=== PATIENT | male | born 1970 | race Caucasian/White ===

== ENCOUNTER 2023-02-03 03:25 | Observation (INO) | payer MEDICAID, OTHER ==
[~2023-02-03] VITALS: Ht 188 cm; Wt 79.8 kg
[2023-02-03] MEDS ORDERED: ONDANSETRON 4MG 2ML VIAL IV ONE (04:15)
[2023-02-03] MEDS ORDERED: NS 1,000 ML IV ONE (04:15)
[2023-02-03] MEDS: HYDROMORPHONE HCL 0.5 MG/ 0.5 ML SYRINGE IV PRN ×4 (04:28→21:02)
[2023-02-03] MEDS ORDERED: ISOVUE-370 76% 100ML VIAL As Ordered ONE (04:41)
[2023-02-03 04:56] LABS: BASO % 0.4 % (0.0-1.0); EOS # 0.1 10^3/uL (0.0-0.5); EOS % 0.7 % (0.0-3.0); HEMATOCRIT 38.9 % (42.0-52.0); LYMPH # 0.7 10^3/uL (1.5-5.0); LYMPH % 9.4 % (24.0-44.0); MEAN CORPUSCULAR HEMOGLOBIN 30.5 pg (27.0-33.0); MEAN CORPUSCULAR HGB CONC 33.4 g/dl (32.0-36.5); MEAN CORPUSCULAR VOLUME 91.3 fl (80.0-96.0); MONO # 0.3 10^3/uL (0.0-0.8); MONO % 3.4 % (2.0-8.0); NEUTROPHILS # 6.3 10^3/uL (1.5-8.5); PLATELET COUNT, AUTOMATED 299 10^3/uL (150-450); RED BLOOD COUNT 4.26 10^6/uL (4.30-6.10); WHITE BLOOD COUNT 7.4 10^3/uL (4.0-10.0)
[2023-02-03 05:17] LABS: LIPASE 22 U/L (12-53)
[2023-02-03 05:18] LABS: CPK CREATINE PHOSPHOKINASE 123 U/L (46-171); MB/CK RELATIVE INDEX 0.81 (< OR =4)
[2023-02-03 05:19] LABS: ALBUMIN 3.3 G/DL (3.2-5.2); ALKALINE PHOSPHATASE 97 U/L (46-116); ALT/SGPT 35 U/L (7.0-40); AST/SGOT 17 U/L (<34); BILIRUBIN,DIRECT 0.2 MG/DL (<0.4); BILIRUBIN,TOTAL 0.5 MG/DL (0.3-1.2); TOTAL PROTEIN 6.2 G/DL (5.7-8.2)
[2023-02-03 05:35] LABS: RSV AMPLIFICATION NEGATIVE (NEGATIVE)
[2023-02-03] MEDS ORDERED: HOME MED LIST COMPLETE! XX SCH (06:40)
[2023-02-03] MEDS ORDERED: MOM 30ML SUSPENSION UDC PO PRN (07:55)
[2023-02-03] MEDS: CIPROFLOXACIN 400 MG in IV 1 EA IV SCH ×2 (08:15→21:01)
[2023-02-03 09:25] VITALS: BP 119/83; TEMP 99.2; O2SAT 97
[2023-02-03] MEDS ORDERED: HYDROmorphone 2 MG TAB PO PRN (10:25)
[2023-02-03] MEDS: metroNIDAZOLE 500 MG in IV 1 EA IV SCH ×2 (10:28→17:20)
[2023-02-03] MEDS: ACETAMINOPHEN TAB 650MG DOSE (2X325MG) PO PRN ×2 (10:30→16:38)
[2023-02-03 11:10] LABS: BLOOD UREA NITROGEN 13 MG/DL (9-23); CALCIUM LEVEL 8.2 MG/DL (8.5-10.1); CARBON DIOXIDE LEVEL 26 MMOL/L (20-31); CHLORIDE LEVEL 105 MMOL/L (98-107); CREATININE FOR GFR 0.65 MG/DL (0.70-1.30); GLOMERULAR FILTRATION RATE > 60.0 (>56); GLUCOSE, FASTING 141 MG/DL (60-100); MAGNESIUM LEVEL 1.4 MG/DL (1.8-2.4); POTASSIUM SERUM 3.8 MMOL/L (3.5-5.1); SODIUM LEVEL 136 MMOL/L (136-145)
[2023-02-03] MEDS ORDERED: HYDROMORPHONE HCL 0.5 MG/ 0.5 ML SYRINGE IV PRN ×5 (12:25→17:00)
[2023-02-03] MEDS: MAG SULF 1GM/100ML (MAG RUN) 1 GM in IV 1 EA IV SCH ×4 (13:01→16:37)
[2023-02-03] MEDS: HEPARIN SOD (PORCINE) 5000UNITS/ML 1ML VIAL/SYRINGE SC SCH ×2 (13:01→20:54)
[2023-02-03 14:00] VITALS: BP 119/80; TEMP 99.2; O2SAT 96
[2023-02-03] MEDS ORDERED: NS 1,000 ML IV SCH (16:55)
[2023-02-03 20:00] VITALS: BP 149/90; TEMP 96.3; O2SAT 96
[2023-02-04] MEDS: HYDROMORPHONE HCL 0.5 MG/ 0.5 ML SYRINGE IV PRN ×4 (00:10→09:34)
[2023-02-04] MEDS: metroNIDAZOLE 500 MG in IV 1 EA IV SCH ×3 (01:10→17:15)
[2023-02-04] MEDS: HEPARIN SOD (PORCINE) 5000UNITS/ML 1ML VIAL/SYRINGE SC SCH ×3 (04:51→20:45)
[2023-02-04 05:00] VITALS: BP 112/55; TEMP 99.3; O2SAT 93
[2023-02-04 06:08] LABS: BASO % 0.1 % (0.0-1.0); EOS % 0.1 % (0.0-3.0); HEMATOCRIT 33.8 % (42.0-52.0); HEMOGLOBIN 11.6 g/dl (13.5-17.5); LYMPH # 0.8 10^3/uL (1.5-5.0); LYMPH % 5.8 % (24.0-44.0); MEAN CORPUSCULAR HEMOGLOBIN 30.4 pg (27.0-33.0); MEAN CORPUSCULAR HGB CONC 34.3 g/dl (32.0-36.5); MEAN CORPUSCULAR VOLUME 88.7 fl (80.0-96.0); MONO # 0.8 10^3/uL (0.0-0.8); MONO % 5.7 % (2.0-8.0); NEUTROPHILS # 11.9 10^3/uL (1.5-8.5); NEUTROPHILS % 87.8 % (36.0-66.0); PLATELET COUNT, AUTOMATED 255 10^3/uL (150-450); RED BLOOD COUNT 3.81 10^6/uL (4.30-6.10); WHITE BLOOD COUNT 13.5 10^3/uL (4.0-10.0)
[2023-02-04 06:32] LABS: BLOOD UREA NITROGEN 13 MG/DL (9-23); CALCIUM LEVEL 8.3 MG/DL (8.5-10.1); CARBON DIOXIDE LEVEL 26 MMOL/L (20-31); CHLORIDE LEVEL 104 MMOL/L (98-107); CREATININE FOR GFR 0.66 MG/DL (0.70-1.30); GLOMERULAR FILTRATION RATE > 60.0 (>56); GLUCOSE, FASTING 108 MG/DL (60-100); MAGNESIUM LEVEL 1.8 MG/DL (1.8-2.4); POTASSIUM SERUM 3.6 MMOL/L (3.5-5.1); SODIUM LEVEL 135 MMOL/L (136-145)
[2023-02-04] MEDS: CIPROFLOXACIN 400 MG in IV 1 EA IV SCH ×2 (07:48→20:54)
[2023-02-04] MEDS ORDERED: NALOXONE INJ 0.4MG/1ML VIAL IV PRN (08:20)
[2023-02-04] MEDS ORDERED: INFLUENZA QUADRIVALENT PF VACCINE 0.5ML SYRINGE IM.IMMUN ONE (09:00)
[2023-02-04] MEDS: MIRALAX *UNIT DOSE* 17GM PACKET PO SCH ×2 (10:53→20:54)
[2023-02-04] MEDS: SIMETHICONE 80MG CHEW TAB PO SCH ×3 (10:53→23:37)
[2023-02-04] MEDS: DICYCLOMINE 10 MG CAP PO SCH ×3 (12:14→20:54)
[2023-02-04] MEDS: HYDROmorphone HCL 2MG/ML 1ML VIAL IV PRN ×4 (12:37→22:46)
[2023-02-04 14:00] VITALS: BP 124/80; TEMP 98.2; O2SAT 95
[2023-02-04 19:59] VITALS: BP 144/91; TEMP 100.5; O2SAT 93
[2023-02-04] MEDS: ACETAMINOPHEN TAB 650MG DOSE (2X325MG) PO PRN (20:54)
[2023-02-04 22:34] VITALS: BP 126/81; TEMP 100.1
[2023-02-04] MEDS: IBUPROFEN 600MG TAB PO PRN (23:38)
[2023-02-05] MEDS: metroNIDAZOLE 500 MG in IV 1 EA IV SCH (01:22)
[2023-02-05 01:38] VITALS: BP 127/80; TEMP 99.6; O2SAT 92
[2023-02-05] MEDS: HYDROmorphone HCL 2MG/ML 1ML VIAL IV PRN ×7 (02:43→21:40)
[2023-02-05 05:32] VITALS: BP 125/80; TEMP 99.2; O2SAT 94
[2023-02-05] MEDS: HEPARIN SOD (PORCINE) 5000UNITS/ML 1ML VIAL/SYRINGE SC SCH ×3 (05:45→21:45)
[2023-02-05] MEDS: SIMETHICONE 80MG CHEW TAB PO SCH ×4 (05:50→23:59)
[2023-02-05 06:52] LABS: BASO % 0.1 % (0.0-1.0); EOS % 0.3 % (0.0-3.0); HEMATOCRIT 35.4 % (42.0-52.0); HEMOGLOBIN 11.9 g/dl (13.5-17.5); LYMPH # 0.8 10^3/uL (1.5-5.0); LYMPH % 5.3 % (24.0-44.0); MEAN CORPUSCULAR HGB CONC 33.6 g/dl (32.0-36.5); MEAN CORPUSCULAR VOLUME 89.2 fl (80.0-96.0); MONO % 6.8 % (2.0-8.0); NEUTROPHILS # 13.1 10^3/uL (1.5-8.5); PLATELET COUNT, AUTOMATED 269 10^3/uL (150-450); RED BLOOD COUNT 3.97 10^6/uL (4.30-6.10); WHITE BLOOD COUNT 15.1 10^3/uL (4.0-10.0)
[2023-02-05 07:01] LABS: INR 1.27; PROTHROMBIN TIME 15.5 SECONDS (12.5-14.5)
[2023-02-05 07:02] LABS: PARTIAL THROMBOPLASTIN TIME 39.8 SECONDS (24.8-34.2)
[2023-02-05 07:08] LABS: BLOOD UREA NITROGEN 15 MG/DL (9-23); CALCIUM LEVEL 8.1 MG/DL (8.5-10.1); CARBON DIOXIDE LEVEL 24 MMOL/L (20-31); CHLORIDE LEVEL 103 MMOL/L (98-107); CREATININE FOR GFR 0.68 MG/DL (0.70-1.30); GLOMERULAR FILTRATION RATE > 60.0 (>56); GLUCOSE, FASTING 96 MG/DL (60-100); MAGNESIUM LEVEL 1.7 MG/DL (1.8-2.4); SODIUM LEVEL 134 MMOL/L (136-145)
[2023-02-05] MEDS: MIRALAX *UNIT DOSE* 17GM PACKET PO SCH ×2 (09:08→21:38)
[2023-02-05] MEDS: MAG SULF 1GM/100ML (MAG RUN) 1 GM in IV 1 EA IV SCH ×2 (09:08→10:19)
[2023-02-05] MEDS: DICYCLOMINE 10 MG CAP PO SCH ×3 (09:08→21:39)
[2023-02-05] MEDS: NS 1,000 ML IV SCH ×2 (09:08→21:40)
[2023-02-05] MEDS: PIPERACILLIN/TAZOBACTAM SOD 3.375 GM in D5W MINI-BAG PLUS 50 ML IV SCH ×3 (11:31→21:38)
[2023-02-05 14:00] VITALS: BP 139/84; TEMP 98.8; O2SAT 95
[2023-02-05 21:27] VITALS: BP 105/70; TEMP 98.4; O2SAT 93
[2023-02-06] MEDS: HYDROmorphone HCL 2MG/ML 1ML VIAL IV PRN ×2 (00:54→05:02)
[2023-02-06 02:44] VITALS: O2SAT 85
[2023-02-06 02:47] VITALS: O2SAT 83; O2SAT 93
[2023-02-06] MEDS: PIPERACILLIN/TAZOBACTAM SOD 3.375 GM in D5W MINI-BAG PLUS 50 ML IV SCH ×2 (04:59→10:00)
[2023-02-06] MEDS: SIMETHICONE 80MG CHEW TAB PO SCH ×2 (04:59→12:00)
[2023-02-06] MEDS: HEPARIN SOD (PORCINE) 5000UNITS/ML 1ML VIAL/SYRINGE SC SCH ×2 (05:09→14:00)
[2023-02-06 05:30] VITALS: BP 110/73; TEMP 98.8; O2SAT 95
[2023-02-06 06:05] LABS: BASO % 0.2 % (0.0-1.0); EOS # 0.3 10^3/uL (0.0-0.5); EOS % 2.7 % (0.0-3.0); HEMATOCRIT 35.9 % (42.0-52.0); HEMOGLOBIN 11.9 g/dl (13.5-17.5); LYMPH # 1.1 10^3/uL (1.5-5.0); LYMPH % 10.2 % (24.0-44.0); MEAN CORPUSCULAR HGB CONC 33.1 g/dl (32.0-36.5); MEAN CORPUSCULAR VOLUME 90.4 fl (80.0-96.0); MONO # 1.2 10^3/uL (0.0-0.8); MONO % 11.2 % (2.0-8.0); NEUTROPHILS # 8.2 10^3/uL (1.5-8.5); NEUTROPHILS % 75.2 % (36.0-66.0); PLATELET COUNT, AUTOMATED 270 10^3/uL (150-450); RED BLOOD COUNT 3.97 10^6/uL (4.30-6.10)
[2023-02-06 06:32] LABS: BLOOD UREA NITROGEN 10 MG/DL (9-23); CARBON DIOXIDE LEVEL 27 MMOL/L (20-31); CHLORIDE LEVEL 103 MMOL/L (98-107); CREATININE FOR GFR 0.75 MG/DL (0.70-1.30); GLOMERULAR FILTRATION RATE > 60.0 (>56); GLUCOSE, FASTING 104 MG/DL (60-100); MAGNESIUM LEVEL 1.9 MG/DL (1.8-2.4); POTASSIUM SERUM 3.6 MMOL/L (3.5-5.1); SODIUM LEVEL 135 MMOL/L (136-145)
[2023-02-06 06:54] VITALS: O2SAT 93
[2023-02-06 06:58] VITALS: O2SAT 87
[2023-02-06] MEDS: HYDROMORPHONE HCL 0.5 MG/ 0.5 ML SYRINGE IV PRN (08:59)
[2023-02-06] MEDS: IBUPROFEN 600MG TAB PO PRN (09:00)
[2023-02-06] MEDS: MIRALAX *UNIT DOSE* 17GM PACKET PO SCH (09:00)
[2023-02-06] MEDS ORDERED: DOCUSATE SODIUM 100MG CAPSULE PO SCH (09:00)
[2023-02-06] MEDS: ACETAMINOPHEN TAB 650MG DOSE (2X325MG) PO PRN (09:00)
[2023-02-06] MEDS: DICYCLOMINE 10 MG CAP PO SCH (09:00)
[2023-02-06] MEDS: NS 1,000 ML IV SCH (09:01)
[2023-02-06] MEDS ORDERED: METR-265 PO (13:39)
[2023-02-06] MEDS ORDERED: CEFD1CAP9 PO (13:39)
== END 2023-02-06 14:04 | disposition home or self-care (01) ==
LOC: M ED 03:25 → EDBD 03:25 → M ED INP 03:26 → M MSPAV 09:24
PROVIDERS: ADMIT Internal Medicine; ATTEND Internal Medicine
DX: R10.9 Unspecified abdominal pain (principal); K52.9 Noninfective gastroenteritis and colitis, unspecified; F11.10 Opioid abuse, uncomplicated; R18.8 Other ascites; E83.42 Hypomagnesemia; F17.218 Nicotine dependence, cigarettes, with other nicotine-induced disorders; Z79.899 Other long term (current) drug therapy; K40.20 Bilateral inguinal hernia, without obstruction or gangrene, not specified as recurrent
CPT/HCPCS: 36415; 71045; 74018; 74177; 76857; 76870; 80047; 80048; 80076; 81001; 82550; 82553; 83605; 83690; 83735; 85025; 85610; 85730; 87040; 87631; 93041; 93976; 96361; 96365; 96366; 96367; 96375; 96376; 99285; J0744; J1170; J1836; J2405; J2543; J3475; Q9967

== ENCOUNTER → 2023-04-27 | Outpatient (REF) | payer OTHER ==
[~2023-04-27] MED LIST: CEFD1CAP9 PO; METR-265 PO
[2023-04-27 17:51] LABS: BASO % 0.4 % (0.0-1.0); EOS # 1.1 10^3/uL (0.0-0.5); EOS % 10.2 % (0.0-3.0); HEMATOCRIT 38.8 % (42.0-52.0); HEMOGLOBIN 12.4 g/dl (13.5-17.5); LYMPH # 2.3 10^3/uL (1.5-5.0); MEAN CORPUSCULAR HEMOGLOBIN 29.8 pg (27.0-33.0); MEAN CORPUSCULAR VOLUME 93.3 fl (80.0-96.0); MONO # 0.5 10^3/uL (0.0-0.8); MONO % 5.1 % (2.0-8.0); NEUTROPHILS # 6.6 10^3/uL (1.5-8.5); PLATELET COUNT, AUTOMATED 285 10^3/uL (150-450); RED BLOOD COUNT 4.16 10^6/uL (4.30-6.10); WHITE BLOOD COUNT 10.6 10^3/uL (4.0-10.0)
[2023-04-27 17:53] LABS: HEMOGLOBIN A1c 4.8 % (4.0-6.0)
[2023-04-27 18:06] LABS: PSA SCREENING 0.87 NG/ML (< 4.00)
[2023-04-27 18:07] LABS: ALBUMIN 3.2 G/DL (3.2-5.2); ALKALINE PHOSPHATASE 76 U/L (46-116); ALT/SGPT 15 U/L (7.0-40); AST/SGOT 15 U/L (<34); BILIRUBIN,TOTAL 0.3 MG/DL (0.3-1.2); BLOOD UREA NITROGEN 18 MG/DL (9-23); CALCIUM LEVEL 8.7 MG/DL (8.5-10.1); CARBON DIOXIDE LEVEL 33 MMOL/L (20-31); CHLORIDE LEVEL 107 MMOL/L (98-107); CHOLESTEROL LEVEL 135 MG/DL (<200); CHOLESTEROL RISK RATIO 3.43 (<5); CREATININE FOR GFR 1.01 MG/DL (0.70-1.30); GLOMERULAR FILTRATION RATE > 60.0 (>56); GLUCOSE, FASTING 56 MG/DL (60-100); HDL CHOLESTEROL 39.3 MG/DL (>40); LDL CHOLESTEROL 81.1 MG/DL (<100); NON-HDL-C 95.7 MG/DL; POTASSIUM SERUM 4.4 MMOL/L (3.5-5.1); SODIUM LEVEL 142 MMOL/L (136-145); TOTAL PROTEIN 5.8 G/DL (5.7-8.2); TRIGLYCERIDES LEVEL 73 MG/DL (<150)
[2023-04-27 18:11] LABS: THYROID STIMULATING HORMONE 1.743 uIU/ML (0.55-4.78); TOTAL 25(OH) VITAMIN D 8.8 NG/ML (20.0-100.0)
[2023-04-27 18:35] LABS: HIV 1&2 SCREEN NEGATIVE (NEGATIVE)
[2023-04-27 18:43] LABS: HEPATITIS C VIRUS ABY INDEX < 0.02 INDEX (<0.8)
== END ==
LOC: M LAB REF 16:11
PROVIDERS: ATTEND Physician Assistant
DX: E55.9 Vitamin D deficiency, unspecified (principal); R10.9 Unspecified abdominal pain; Z11.9 Encounter for screening for infectious and parasitic diseases, unspecified; Z12.5 Encounter for screening for malignant neoplasm of prostate

== ENCOUNTER 2023-05-16 09:58 | Emergency (ER) | payer OTHER ==
[~2023-05-16] VITALS: Ht 188 cm; Wt 88.6 kg
[2023-05-16 10:37] VITALS: BP 124/81; TEMP 98.4; O2SAT 96
[2023-05-16] MEDS ORDERED: LIDOCAINE 4% CREAM 5GM (LMX4) TOP ONE (10:40)
[2023-05-16] MEDS ORDERED: BACITRACIN OINTMENT 30GM TUBE TOP ONE (10:40)
[2023-05-16] MEDS ORDERED: LIDOCAINE W/EPINEPHRINE 1% 20ML VIAL INFIL ONE (10:40)
== END 2023-05-16 12:42 | disposition home or self-care (01) ==
LOC: M ED 09:58
DX: S00.83XA Contusion of other part of head, initial encounter (principal); S01.112A Laceration without foreign body of left eyelid and periocular area, initial encounter; W10.8XXA Fall (on) (from) other stairs and steps, initial encounter; Y92.009 Unspecified place in unspecified non-institutional (private) residence as the place of occurrence of the external cause; Y93.9 Activity, unspecified; Y99.9 Unspecified external cause status; F19.10 Other psychoactive substance abuse, uncomplicated; F17.200 Nicotine dependence, unspecified, uncomplicated